=== PATIENT | male | born 1975 | race Caucasian/White ===

== ENCOUNTER 2020-11-01 11:33 | Emergency (ER) | payer BC ==
[~2020-11-01] VITALS: Ht 170.2 cm; Wt 79.5 kg
[2020-11-01 11:52] VITALS: BP 131/83
--- NOTE | 2020-11-01 12:06 | PHYS DOC ---
General Adult EDM: Chief Complaint: LOWEREXTREMITY INJURY HPI: HPI: Patient is a 45-year-old male who presents with a right ankle pain. Patient states on Saturday he stepped out of his truck and rolled his right ankle. Right ankle is swollen. Pain is exacerbated with ambulation. Denies taking anything for pain prior to arrival. (CHAD ORTA APRN) Review of Systems: Review of Systems: Constitutional: Denies fever or chills Eyes: Denies change in visual acuity HENT: Denies nasal congestion or sore throat Respiratory: Denies cough or shortness of breath Cardiovascular: Denies chest pain or edema GI: Denies abdominal pain, nausea, vomiting, bloody stools or diarrhea : Denies dysuria Musculoskeletal: Reports right ankle pain and swelling Integument: Denies rash Neurologic: Denies headache, focal weakness or sensory changes Endocrine: Denies polyuria or polydipsia Lymphatic: Denies swollen glands Psychiatric: Denies depression or anxiety (CHAD ORTA APRN) Physical Exam: PE: Constitutional: Well developed, well nourished, no acute distress, non-toxic appearance. [] HENT: Normocephalic, atraumatic, bilateral external ears normal, oropharynx moist, no oral exudates, nose normal. [] Eyes: PERRLA, EOMI, conjunctiva normal, no discharge. [] Neck: Normal range of motion, no tenderness, supple, no stridor. [] Cardiovascular:Heart rate regular rhythm, no murmur [] Lungs & Thorax: Bilateral breath sounds clear to auscultation [] Abdomen: Bowel sounds normal, soft, no tenderness, no masses, no pulsatile masses. [] Skin: Right ankle swelling Back: No tenderness, no CVA tenderness. [] Extremities: Right ankle tenderness, no cyanosis, ROM intact, pedal pulses intact Neurologic: Alert and oriented X 3, normal motor function, normal sensory function, no focal deficits noted. [] Psychologic: Affect normal, judgement normal, mood normal. [] (CHAD ORTA SCOOPING MACHINE TENDER) EKG: EKG: [] (CHAD ORTA APRN) Radiology/Procedures: Radiology/Procedures: []AP, lateral and oblique views of the right ankle. No comparison is available. Indication: Twisted ankle now with pain. No fracture, subluxation or dislocation is seen. The ankle mortise is intact. There is lateral soft tissue swelling seen over the lateral malleolus. Cannot exclude ligamentous injury. Impression: Soft tissue swelling laterally, cannot exclude ligamentous injury. Electronically signed by: Nabil Stevenson MD (11/01/2020 12:19 PM) [id number] (CHAD ORTA APRN) Heart Score: C/O Chest Pain: No Risk Factors: Risk Factors: DM, Current or recent (<one month) smoker, HTN, HLP, family history of CAD, obesity. Risk Scores: Score 0 - 3: 2.5% MACE over next 6 weeks - Discharge Home Score 4 - 6: 20.3% MACE over next 6 weeks - Admit for Clinical Observation Score 7 - 10: 72.7% MACE over next 6 weeks - Early Invasive Strategies (CHAD ORTA APRN) Course & Med Decision Making: Course & Med Decision Making Pertinent Labs and Imaging studies reviewed. (See chart for details) [] 45-year-old male presents with right ankle pain after stepping out of his truck and rolling his ankle on Saturday. Patient has swelling to his right ankle. Patient still has range of motion but produces pain. Pedal pulses and sensation intact. Right ankle x-ray ordered to rule out fracture. Ankle x-rays negative for fracture. Shows soft tissue swelling. Rice instructions given. Papi wrap applied to ankle. Ibuprofen and Tylenol at home. Follow-up with PCP for repeat imaging if pain continues. (CHAD ORTA APRN) Dragon Disclaimer: Dragon Disclaimer: This electronic medical record was generated, in whole or in part, using a voice recognition dictation system. (CHAD ORTA APRN) Attending Co-Sign The patient was seen and interviewed as well as examined at the bedside. The chart was reviewed. The case was discussed. Agree with the plan of care. (CASANDRA BUSTAMANTE DO) Departure Departure: Impression: Primary Impression: Right ankle sprain Qualified Codes: S93.401A - Sprain of unspecified ligament of right ankle, initial encounter Disposition: HOME / SELF CARE / HOMELESS Condition: STABLE Referrals: ROBERT MCPHERSON MD (PCP) Patient Instructions: Ankle Sprain, [id number] Additional Instructions: You were seen in the emergency room for right ankle pain after twisting your ankle on Saturday. X-ray was negative for fracture. If you continue to have pain please call your PCP make a follow-up appointment for possible repeat imaging. Ibuprofen and Tylenol at home. Is important to rest, use ice to the area, wear Papi wrap provided, and elevate to help with swelling and pain. Please return to emergency room if you have worsening symptoms or concerns. EMERGENCY DEPARTMENT GENERAL DISCHARGE INSTRUCTIONS Thank you for coming to [facility] (ED) today and trusting us with you care. We trust that you had a positivie experience in our Emergency Department. If you wish to speak to the department management, you may call the director at [phone]. YOUR FOLLOW UP INSTRUCTIONS ARE FOLLOWS: 1. Do you have a private Doctor? If you do not have a private doctor, please ask for a resource list of physicians or clinics that may be able to assist you with follow up care. 2. The Emergency Physician has interpreted your x-rays. The X-Ray specialist will also review them. If there is a change in the findings, you will be notified in 48 hours when at all possible. 3. A lab test or culture has been done, your results will be reviewed and you will be notified if you need a change in treatment. ADDITIONAL INSTRUCTIONS AND INFORMATION: 1. Your care today has been supervised by a physician who is specially trained in emergency care. Many problems require more than one evaluation for a complete diagnosis and treatment. We recommend that you schedule your follow up appointment as recom mended to ensure complete treatment of you illness or injury. If you are unable to obtain follow up care and continue to have a problem, or if your condition worsens, we recommend that you return to the ED. 2. We are not able to safely determine your condition over the phone nor are we able to give sound medical advice over the phone. For these safety reasons, if you call for medical advice we will ask you to come to the ED for further evaluation. 3. If you have any questions regarding these discharge instructions please call the ED at [phone]. SAFETY INFORMATION: In the interest of safety, wellness, and injury prevention; we encourage you to wear your sealbelt, if you smoke; quite smoking, and we encourage family to use a protective helmet for bicycling and other sporting events that present an increased risk for head injury. IF YOUR SYMPTOMS WORSEN OR NEW SYMPTOMS DEVELOP, OR YOU HAVE CONCERNS ABOUT YOUR CONDITION; OR IF YOUR CONDITION WORSENS WHILE YOU ARE WAITING FOR YOUR FOLLOW UP APPOINTMENT; EITHER CONTACT YOUR PRIMARY CARE DOCTOR, THE PHYSICIAN WHOSE NAME AND NUMBER YOU WERE GIVEN, OR RETURN TO THE ED IMMEDIATELY. CHAD ORTA APRN Nov 01, 2020 12:06 CASANDRA BUSTAMANTE DO Nov 03, 2020 06:20
--- NOTE | 2020-11-01 12:21 | RAD ---
AP, lateral and oblique views of the right ankle. No comparison is available. Indication: Twisted ankle now with pain. No fracture, subluxation or dislocation is seen. The ankle mortise is intact. There is lateral soft t issue swelling seen over the lateral malleolus. Cannot exclude ligamentous injury. Impression: Soft tissue swelling laterally, cannot exclude ligamentous injury. Electronically signed by: Nabil Stevenson MD (11/01/2020 12:19 PM) [id number]
== END 2020-11-01 13:00 | disposition home or self-care (01) ==
LOC: ER 11:33
DX: S93.401A Sprain of unspecified ligament of right ankle, initial encounter (principal); X50.9XXA Other and unspecified overexertion or strenuous movements or postures, initial encounter; Y93.89 Activity, other specified; Y92.89 Other specified places as the place of occurrence of the external cause; Y99.8 Other external cause status
CPT/HCPCS: 73610; 99283